=== PATIENT | male | born 1985 ===

== ENCOUNTER 2020-12-07 01:07 | Emergency (ER) | payer SELFPAY ==
[2020-12-07 01:47] VITALS: BP 115/80
--- NOTE | 2020-12-07 02:35 | Emergency Department Report ---
ED General Adult HPI - General Chief complaint: Urogenital-Male Stated complaint: STOMACH PAIN BURNING W/URINE Time Seen by Provider: 12/07/20 02:07 Source: patient Mode of arrival: Ambulatory Limitations: Language Barrier - History of Present Illness Initial comments: 35-year-old male patient presents to the emergency department with complaints of abdominal pain and painful urination starting today. Pain is localized to the lower abdomen. Describes the painful urination as a "burning sensation" in his penis. No history of prior abdominal surgeries. No history of STDs. No preceding trauma. Denies fever, chills, nausea, vomiting, diarrhea, con stipation. Denies all other complaints at this time - Related Data Previous Rx's Medication Instructions Recorded Last Taken Type Doxycycline Hyclate 100 mg PO BID 7 Days tablet. 12/07/20 Unknown Rx Allergies Allergy/AdvReac Type Severity Reaction Status Date / Time No Known Allergies Allergy Verified 12/07/20 01:52 ED Review of Systems ROS: Stated complaint: STOMACH PAIN BURNING W/URINE Other details as noted in HPI Other: GENERAL: Negative for fever, chills, weight change, anorexia, fatigue. ENT: Negative for ear pain, difficulty hearing, sore throat, nasal congestion, epistaxis. CARDIOVASCULAR: Negative for chest pain, palpitations, lower extremity swelling. PULMONARY: Negative for cough, dyspnea, wheezing, orthopnea, cyanosis. GASTROINTESTINAL: Positive for abdominal pain. GENITOURINARY: Positive for painful urination. MUSCULOSKELETAL: Negative for joint pain, joint swelling, myalgias, back pain, neck pain. NEUROLOGICAL: Negative for headache, seizure, syncope, paresthesias, weakness. INTEGUMENTARY: Negative for erythema, rash, diaphoresis, laceration, ecchymosis. HEMATOLOGICAL: Negative for hemoptysis, hematemesis, hematochezia, hematuria. PSYCHIATRIC: Negative for hallucinations, suicidal ideation, homicidal ideation, anxiety, depression. ED Past Medical Hx - Past Medical History Previous Medical History?: No - Surgical History Past Surgical History?: No - Social History Smoking Status: Current Every Day Smoker Substance Use Type: Alcohol - Medications Home Medications: Home Medications Medication Instructions Recorded Confirmed Last Taken Type Doxycycline Hyclate 100 mg PO BID 7 Days tablet. 12/07/20 Unknown Rx ED Physical Exam - General Limitations: Language Barrier - Other Other exam information: General: Awake and alert. No acute distress. Head: Atraumatic, normocephalic. Eyes: EOMI. Pupils are equal and round. Normal sclera and conjunctiva. ENT: Oral mucosa is moist. Normal pharyngeal exam. Neck: Supple. No lymphadenopathy. Pulmonary: No respiratory distress. Clear to auscultation bilaterally. Cardiac: Regular rate and rhythm. Pulses are palpable and equal bilaterally. No lower extremity cyanosis or edema. Skin: Warm and dry. No rashes. Abdomen: Soft, non-protuberant. Diffuse lower abdominal tenderness without guarding, rigidity, or rebound. Bowel sounds are normal. No organomegaly or masses noted. 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 No evidence of inguinal hernia. No scrotal edema or tenderness. No testicular asymmetry. Uncircumcised. No rashes or lesions. There is purulent discharge at the urethral meatus. There is tenderness along the distal penile shaft with swelling and erythema. Back: Normal alignment. No CVA tenderness. Extremities: Symmetrical. Full range of motion intact. Neurological: Alert and oriented, appropriately interactive, no focal deficits. Psych: Cooperative. Appropriate mood and affect. Speech is evenly metered. Thoughts are logically construed. ED Course Vital Signs 12/07/20 01:43 Temperature 97.3 F L Pulse Rate 92 H Respiratory 18 Rate Blood Pressure 115/80 O2 Sat by Pulse 97 Oximetry ED Medical Decision Making - Lab Data Result diagrams: 12/07/20 02:54 12/07/20 02:54 - Medical Decision Making Differential diagnosis including but not limited to: phimosis, paraphimosis, balanitis, sexually transmitted infection, urinary tract infection, appendicitis, pyelonephritis, syphilis On reevaluation, patient remains stable. Labs are unremarkable. Repeat abdominal exam is benign. Urinalysis consistent with infection. Culture pe nding. History and exam findings concerning for sexually transmitted infection however STD testing is currently not available at this facility. Patient will be treated empirically with IM Rocephin + one-time dose of Diflucan for suspected concomitant balanitis and discharged home with prescription for Doxycycline. Emphasized the importance of refraining from sexual intercourse until infection clears. Instructed to follow-up with [facility] for confirmatory testing. Patient expressed understanding and is agreeable to plan of care. Strict return precautions provided. History, exam, diagnostic testing, and current condition do not suggest worrisome pathology to warrant further testing, continued ED treatment, admission, or surgical evaluation at this point. Given the low probability of a significant medical illness, it would be more likely to result in harm than benefit to perform further testing at this stage. Discussed findings, presumptive diagnosis, need for follow-up and specific signs/symptoms that should prompt immediate return to the emergency department. Instructions were explained in detail to the patient in addition to giving written discharge i nformation. Patient expressed understanding and was given the opportunity to ask questions, all of which were satisfactorily answered prior to discharge home. Critical care attestation.: If time is entered above; I have spent that time in minutes in the direct care of this critically ill patient, excluding procedure time. ED Disposition Clinical Impression: Nonspecific urethritis, Balanitis Disposition: 01 HOME / SELF CARE / HOMELESS Is pt being admited?: No Does the pt Need Aspirin: No Condition: Stable Instructions: Urethritis, Adult, Balanitis Additional Instructions: Take Doxycycline with food as directed until complete. Avoid prolonged sun exposure while taking this medication. Do not engage in sexual intercourse until symptoms resolve. Follow-up with [facility] for STD testing. Follow-up with primary care provider this week. Call today to schedule an appointment. See referral information below. Return to the emergency department immediately for new or worsening symptoms. Prescriptions: Doxycycline Hyclate 100 mg PO BID 7 Days tablet. Referrals: JAE PINEDO MD [Staff Physician] - 3-5 Days [facility] [Outside] - 3-5 Days Forms: STI Treatment and Prevention Time of Disposition: 05:06
[2020-12-07 03:16] LABS: Basophils % (Auto) 0.3 % (0.0-1.8); Eosinophils # (Auto) 0.2 K/mm3 (0.0-0.4); Eosinophils % (Auto) 1.7 % (0.0-4.3); Lymphocytes # (Auto) 2.7 K/mm3 (1.2-5.4); Mean Corpuscular HGB Conc 36 % (32-34); Mean Corpuscular Volume 89 fl (84-94); Monocytes % (Auto) 8.5 % (0.0-7.3); Platelet Count 255 K/mm3 (140-440); Red Blood Count 4.56 M/mm3 (3.65-5.03); Red Cell Distribution Width 13.6 % (13.2-15.2)
[2020-12-07 03:17] LABS: Bacteria,Urine 1+ /HPF (Negative); Bilirubin,Urine NEG (Negative); Blood,Urine SM (Negative); Color,Urine Yellow (Yellow); Mucus,Urine FEW /HPF
[2020-12-07 03:18] LABS: WBC,Urine > 182.0 /HPF (0.0-6.0)
[2020-12-07 03:19] LABS: Hematocrit 40.7 % (35.5-45.6); Hemoglobin 14.6 gm/dl (11.8-15.2)
[2020-12-07 03:40] LABS: Alanine Aminotransferase 19 units/L (7-56); Albumin 4.3 g/dL (3.9-5); BUN/Creatinine Ratio 18; Blood Urea Nitrogen 22 mg/dL (9-20); Calcium 8.9 mg/dL (8.4-10.2); Hemolysis Index 9
[2020-12-07] MEDS ORDERED: LIDOCAINE-MPF (1%) 10 MG/1 ML VIAL 5 ML INFILTRATI ONE (04:59)
[2020-12-07] MEDS ORDERED: FLUCONAZOLE 200 MG TAB PO ONE (05:21)
== END 2020-12-07 05:55 | disposition home or self-care (01) ==
LOC: ED 01:07
DX: N34.2 Other urethritis (principal); N48.1 Balanitis; F17.200 Nicotine dependence, unspecified, uncomplicated; Z72.89 Other problems related to lifestyle; Z79.899 Other long term (current) drug therapy
CPT/HCPCS: 36415; 80053; 81001; 85025; 86592; 96372; 99283; J0696